=== PATIENT | male | born 1960 | race Caucasian/White ===

== ENCOUNTER 2017-07-08 09:52 | Emergency (ER) | payer BC ==
[2017-07-08 10:10] VITALS: BP 145/89
--- NOTE | 2017-07-08 10:20 | UC ---
Throat Pain/Nasal Stefan HPI - HPI Summary HPI Summary: Patient has had frontal sinus pressure for the past two weeks. - History of Current Complaint Chief Complaint: UCRespiratory Stated Complaint: SINUSES Time Seen by Provider: 07/08/17 10:13 Hx Obtained From: Patient Hx From Patient Unobtainable Due To: Altered Mental Status Onset/Duration: Sudden Onset, Lasting Days Severity: Moderate Cough: Nonproductive Associated Signs & Symptoms: Positive: Sinus Discomfort, Nasal Discharge - Allergies/Home Medications Allergies/Adverse Reactions: Allergies Allergy/AdvReac Type Severity Reaction Status Date / Time No Known Allergies Allergy Verified 07/08/17 10:10 Home Medications: Home Medications Carvedilol TAB* [Coreg TAB*] 25 mg PO BID 07/08/17 [History Confirmed 07/08/17] Clobetasol 0.05% OINT* 1 applic TOPICAL BID 07/08/17 [History Confirmed 07/08/17 ] Cyclobenzaprine TAB* [Flexeril 10 MG TAB*] 10 mg PO TID PRN 07/08/17 [History Confirmed 07/08/17] Gabapentin CAP(*) [Neurontin 300 CAP(*)] 300 mg PO TID 07/08/17 [History Confirmed 07/08/17] Loratadine 10 mg PO DAILY 07/08/17 [History Confirmed 07/08/17] Losartan Potassium & Hydrochlo [Losartan Potassium/Hydroc 50-12.5 mg] 1 tab PO DAILY 07/08/17 [History Confirmed 07/08/17] Secukinumab [Cosentyx] 150 mg SC ONCE 07/08/17 [History Confirmed 07/08/17] PMH/Surg Hx/FS Hx/Imm Hx Previously Healthy: Yes - Surgical History Surgical History: Yes Surgery Procedure, Year, and Place: left rotator cuff 2017. right rotator cuff 2010. left miniscus repair - Social History Alcohol Use: None Substance Use Type: None Smoking Status (MU): Never Smoked Tobacco Review of Systems Constitutional: Fatigue Skin: Negative Eyes: Eye Redness ENT: Sore Throat, Nasal Discharge, Sinus Congestion Respiratory: Cough Cardiovascular: Negative Gastrointestinal: Negative Genitourinary: Negative Motor: Negative Neurovascular: Negative Neurological: Headache Psychological: Negative Is Patient Immunocompromised?: No All Other Systems Reviewed And Are Negative: Yes Physical Exam Triage Information Reviewed: Yes Appearance: Well-Nourished, Ill-Appearing, Pain Distress Vital Signs: Initial Vital Signs Temp 97.6 F 07/08/17 10:04 Pulse 65 07/08/17 10:04 Resp 16 07/08/17 10:04 BP 145/89 07/08/17 10:04 Pulse Ox 96 07/08/17 10:04 Vital Signs Reviewed: Yes Eye Exam: Normal Eyes: Positive: Conjunctiva Inflamed ENT: Positive: Pharyngeal erythema, Nasal congestion, Nasal drainage, TMs normal , Sinus tenderness Neck exam: Normal Respiratory Exam: Normal Respiratory: Positive: Chest non-tender, Lungs clear, Normal breath sounds Cardiovascular Exam: Normal Cardiovascular: Positive: RRR, No Murmur, Pulses Normal Abdominal Exam: Normal Abdomen Description: Positive: Nontender, No Organomegaly, Soft Bowel Sounds: Positive: Present Musculoskeletal Exam: Normal Musculoskeletal: Positive: Strength Intact, ROM Intact, No Edema Neurological Exam: Normal Neurological: Positive: Alert, Muscle Tone Normal Psychological Exam: Normal Skin Exam: Normal Throat Pain/Nasal Course/Dx - Course Course Of Treatment: hx obtained, exam performed, meds reviewed, treated for sinusitis - Differential Dx/Diagnosis Differential Diagnosis/HQI/PQRI: Otitis Media, Pharyngitis, Sinusitis, URI Provider Diagnoses: sinusitis Discharge - Discharge Plan Condition: Stable Disposition: HOME Prescriptions: Amoxicillin PO (*) [Amoxicillin 875 MG (*)] 875 mg PO BID #14 tab Patient Education Materials: Sinusitis (ED), Warm Compress or Soak (ED) Forms: *Work Release Referrals: No Primary Care Phys,NOPCP [Primary Care Provider] - Additional Instructions: 1. wram compresses to head, 2. Take medication as prescribed 3. Continue increased fluids to keep mucus moist and mobile 4. FOllow up as needed.
== END 2017-07-08 10:26 | disposition home or self-care (01) ==
LOC: UCCORT 09:52
DX: J32.9 Chronic sinusitis, unspecified (principal); R53.83 Other fatigue; H57.8 Other specified disorders of eye and adnexa
CPT/HCPCS: 99212; G0463